=== PATIENT | female | born 2000 | race Asian ===

== ENCOUNTER 2025-02-04 09:55 | Outpatient (AMB) | payer OTHER, SELFPAY ==
--- NOTE | 2025-02-04 10:09 | AMB.GYNCLNOT ---
Vital Signs 02/04/25 10:10 Weight 61.859 kg Weight Measurement Method Standing Scale BP 121/73 Blood Pressure Source Automatic Cuff Blood Pressure Location Left Upper Arm Position Sitting Respiration 18 Pulse 63 Pulse Source Monitor Temp 97.2 F Temp Source Oral Pulse Oximetry (%) 98 Oxygen Delivery Method Room Air Allergies/Home Meds Allergies & Medications Allergies No Known Allergies Allergy (Verified 02/04/25 10:11) Medication Reconciliation imiquimod 5 % topical cream packet 1 applic topical .3 time weekly 1 week #12 ea 02/04/25 [Rx] Intake Visit Data Collection New Patient or Established: Established Patient (seen at [facility] within 3 years) Reason for Visit:: NEXPLANON REMOVAL ONLY / PREGNACY TEST NEGATIVE Seen by Clinical Staff ONLY (RN/MA): No Box Tender Required: No Do You Feel Safe at Home: Yes Authorities Contacted: N/A PCP or OBGYN visit in last 3 months: Yes Hx Now: No Are you currently on any form of Control: Yes Last menstrual period: 01/10/25 Pain Present Currently: No Pain Scale Used: Vides-Lopez/Numerical Pain scale:: 0 Smoking Status Smoking Status: Never smoker 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 1. Little interest or pleasure in doing things: not at all 2. Feeling down, depressed, or hopeless: not at all Total score: 0 PHQ-9 3. Trouble falling or staying asleep, or sleeping too much: Not at all 4. Feeling tired or having little energy: Not at all 5. Poor appetite or overeating: Not at all 6. Feeling bad about yourself - or that you are a failure or have let yourself or your family down: Not at all 7. Trouble concentrating on things, such as reading the newspaper or watching television: Not at all 8. Moving or speaking so slowly that other people could have noticed? - Or the opposite - being so fidgety or restless that you have been moving around a lot more than usual: not at all 9. Thoughts that you would be better off or of hurting yourself in some way: Not at all Total score: 0 If you checked off any problems, how difficult have these problems made it for you to do your work, take care of things at home, or get along with other people?: not difficult at all Source: Developed by Drs. Migue Hoover, Poonam Barreto, Nahun Dinh and colleagues, with an educational shadi from [employer]. Depression screen completed yes Social History Tobacco History Smoking Status: Never smoker Domestic Abuse History Do You Feel Safe at Home: Yes History of Present Illness HPI Narrative 24-year-old NOAC for Nexplanon removal. Patient had a left Nexplanon in her left arm for a year and a half. No aches. Patient is not happy with the method. She is complaining of increased weight gain and irregular periods with the Nexplanon denies social habits. Denies surgery. Denies chronic illness. Patient is still complaining of small bumps inside the vagina Review of Systems Review of Systems Systems Reviewed: All systems reviewed, normal except as documented Exam Narrative Physical exam: Nexplanon capsule passed painted and left forearm General Limitations: no limitations General Appearance: alert, in no apparent distress, comfortable, cooperative, healthy appearing, well developed and well groomed Head Head exam: atraumatic, normocephalic and normal inspection Resp Respiratory exam: Present normal lung sounds bilaterally Card Cardiovascular exam: Present regular rate, normal rhythm and normal heart sounds Bimanual exam: Present normal bimanual exam and other (Several seedlike looking white lesions that are very small inside the vagina in front hymenal ring. Patient's left side. Normal discharge and no external lesions of the vulva) Extremities Extremities exam: Present normal inspection and full ROM Skin Skin exam: Present warm, dry, intact and normal color Results Objective Laboratory: negative preg test Office Procedures OBC Clinic LOC & Office Proc's Nursing/Assessment Patient Status: Established Patient OB Clinic Nursing Assessment: Medication Reconciliation, Update PMH in EMR and Vital Signs OB Clinic Coordination of Care: Consent,records obtained, informed consent, Education Simp Pt/Fam, Lab and Imaging orders, Results/Orders obtained and Staff clarify orders Special Needs: Heart tones Established Patient Charge Established Patient Point Assignment: 110 Established Patient Point Charge: EP Level 3 (80-115) Results Urine HCG Urine HCG Negative Last Edit by Arianna Ballesteros MA on 02/04/25 10:16 Assessment & Plan Diagnosis / Problem List (1) Nexplanon removal: Status: Acute Plan herpes culture today. I ordered a prescription for Aldara to use 3 times per week at night. Wash off in the morning. Discussed safe sex and condom use. We consented for Nexplanon removal. I reviewed the procedure with the patient and discussed wound care. Dry for 3 days. I offered further contraception and patient declined. Return in 2 weeks for results. Additional Plan Follow Up: 1 Week (obc) Control Implant/Removal Removal of Contraceptive Device Ambulatory Dept Location: OB Clinic Removal of Contraceptive Device: Yes (removal nexplanon. nexplanon x 15 month) Removal of IUD Ambulatory Dept Location: OB Clinic Removal of IUD: No (Removal of Nexplanon capsule) Procedure Notes Pre-op diagnosis general: Nexplanon removal Post-op diagnosis procedure note: Same Consent obtained: yes-verbal and yes-written Consent comments: Timeout per protocol. Negative test. Betadine cleanse of the left forearm at the site of Nexplanon insertion. 2 cc lidocaine 1% inserted at site. One 1/8 cm incision made to remove Nexplanon capsule. Small amount of bleeding noted that stopped with pressure. Nexplanon capsule was then removed using to mosquitoes clamps. Nexplanon was moved intact. Patient was consented for Nexplanon removal procedure. I discussed the procedure. Discussed wound care. I offered alternative contraception. Patient declined. Procedure Notes:: Band-Aid was placed over the Nexplanon removal incision. And pressure dressing applied. Bleeding had stopped with pressure. I then examined vagina for persistent complaints of bumps in the vagina. Discussed safe sex. And I advised condoms. And going to start the patient on and Aldara 3 times a week. Herpes culture was obtained and sent to lab after it was labeled. Patient will follow-up for results in 2 weeks
[2025-02-04 10:10] VITALS: BP 121/73; PULSE 63; RESP 18; TEMP 36.2; O2SAT 98
== END 2025-02-04 10:54 | disposition home or self-care (01) ==
PROVIDERS: Supervising Provider Advanced Practice Midwife; Visit Provider Advanced Practice Midwife
DX: Z30.46 Encounter for surveillance of implantable subdermal contraceptive (principal); Z32.02 Encounter for pregnancy test, result negative
CPT/HCPCS: 11982; 96372; 99213; J3490; G0463

== ENCOUNTER 2025-03-24 10:10 | Outpatient (AMB) | payer OTHER, SELFPAY ==
--- NOTE | 2025-03-24 10:25 | AMB.GYNCLNOT ---
Vital Signs 03/24/25 10:31 Height 1.52 m Height Method Stated Weight 63.049 kg Weight Measurement Method Standing Scale BMI 27.1 BP 113/77 Blood Pressure Source Automatic Cuff Blood Pressure Location Left Upper Arm Position Sitting Respiration 14 Pulse 70 Pulse Source Monitor Temp 97.5 F Temp Source Oral Pulse Oximetry (%) 98 Oxygen Delivery Method Room Air Allergies/Home Meds Allergies & Medications Allergies No Known Allergies Allergy (Verified 03/24/25 10:32) Medication Reconciliation imiquimod 5 % topical cream packet 1 applic topical .3 time weekly 1 week #12 ea 02/04/25 [Rx Confirmed 03/24/25] imiquimod 5 % topical cream packet 1 applic topical .3 times weekly condyloma 4 weeks #12 ea 03/24/25 [Rx] Intake Visit Data Collection New Patient or Established: Established Patient (seen at [facility] within 3 years) Reason for Visit:: VAGINAL BUMP Seen by Clinical Staff ONLY (RN/MA): No 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 Do You Feel Safe at Home: Yes Authorities Contacted: N/A PCP or OBGYN visit in last 3 months: Yes Hx Now: No Are you currently on any form of Control: No Last menstrual period: 02/14/25 Pain Present Currently: No Pain Scale Used: Vides-Lopez/Numerical Pain scale:: 0 Smoking Status Smoking Status: Never smoker Immunizations Flu Vaccine in the Last 12 Months: Yes Flu Vaccine Exclusion Criteria: Already Received 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 1. Little interest or pleasure in doing things: not at all 2. Feeling down, depressed, or hopeless: not at all Total score: 0 PHQ-9 3. Trouble falling or staying asleep, or sleeping too much: Not at all 4. Feeling tired or having little energy: Not at all 5. Poor appetite or overeating: Not at all 6. Feeling bad about yourself - or that you are a failure or have let yourself or your family down: Not at all 7. Trouble concentrating on things, such as reading the newspaper or watching television: Not at all 8. Moving or speaking so slowly that other people could have noticed? - Or the opposite - being so fidgety or restless that you have been moving around a lot more than usual: not at all 9. Thoughts that you would be better off or of hurting yourself in some way: Not at all Total score: 0 Source: Developed by Drs. Migue Hoover, Poonam Barreto, Nahun Dinh and colleagues, with an educational shadi from [employer]. Depression screen completed yes Social History Living Situation History Lives With: Family Housing: House Tobacco History Smoking Status: Never smoker Second Hand Smoke Exposure: No Alcohol History Alcohol Intake: Never Domestic Abuse History Do You Feel Safe at Home: Yes History of Present Illness HPI Narrative 25-year-old male up with complaints of bumps inside labia. Patient had her Nexplanon removed February 03. She is currently using condoms for contraception. She says she has occasional vaginal itching and some discharge has been coming and going. Patient denies social habits. And she denies surgeries. She had a Pap smear 2 months ago and that was normal Review of Systems Review of Systems Systems Reviewed: All systems reviewed, normal except as documented Exam Narrative Physical exam: Perineal body was clear. Recheck read. On the inner aspects of both labia patient had several clumping small condyloma. No other lesions were noted. No swelling. Abdomen was soft and nontender. General Limitations: no limitations General Appearance: alert, in no apparent distress, comfortable, cooperative, healthy appearing, well developed and well groomed Head Head exam: atraumatic, normocephalic and normal inspection Chest Chest inspection: Present normal inspection and symmetric chest wall rise Resp Respiratory exam: Present normal lung sounds bilaterally Card Cardiovascular exam: Present regular rate, normal rhythm and normal heart sounds Psych Psychiatric exam: Present normal affect and normal mood Office Procedures OBC Clinic LOC & Office Proc's Nursing/Assessment Patient Status: Established Patient OB Clinic Nursing Assessment: Medication Reconciliation, Update PMH in EMR and Vital Signs OB Clinic Coordination of Care: Complex Care and Chronic Disease 1-5, Consent,records obtained, informed consent, Education Simp Pt/Fam, 1 Ins Authorization, Lab and Imaging orders, Results/Orders obtained and Staff clarify orders Miscellaneous Interventions: Pelvic no cultures Established Patient Charge Established Patient Point Assignment: 130 Established Patient Point Charge: EP Level 4 (120-155) Assessment & Plan Diagnosis / Problem List (1) Condyloma: Status: Acute Plan Discussed safe sex. Continue to use condoms. Immoquad 3 time weekly x [address] in PM and wash in am. rtc 4 week for eval Additional Plan Follow Up: 4 Weeks (f/o condyloma)
[2025-03-24 10:31] VITALS: BP 113/77; PULSE 70; RESP 14; TEMP 36.4; O2SAT 98; BMI 27.1
== END 2025-03-24 11:14 | disposition home or self-care (01) ==
LOC: HODSOBC 10:10
PROVIDERS: Supervising Provider Advanced Practice Midwife; Visit Provider Advanced Practice Midwife
DX: A63.0 Anogenital (venereal) warts (principal)
CPT/HCPCS: 99214; G0463